=== PATIENT | female | born 1945 ===

== ENCOUNTER 2019-09-18 14:57 | Inpatient (IN) | payer MEDICARE, MEDICAID ==
[~2019-09-18] VITALS: Ht 152.4 cm; Wt 54.1 kg
[2019-09-18] MEDS ORDERED: XOPENEX HFA15 GM IH (16:02)
[2019-09-18] MEDS ORDERED: LEVO75TA5 PO (16:03)
[2019-09-18] MEDS ORDERED: MELO15TA23 PO (16:03)
[2019-09-18] MEDS ORDERED: TRAZ150T49 PO (16:09)
[2019-09-18] MEDS ORDERED: RALO60TA PO (16:09)
[2019-09-18] MEDS ORDERED: UMEC1DIS IH (16:09)
[2019-09-18] MEDS ORDERED: TRAM50TA PO (16:09)
[2019-09-18] MEDS ORDERED: ACETAMINOPHEN 325 MG TABLET PO PRN (17:00)
[2019-09-18 17:21] VITALS: BP 131/77
[2019-09-18 17:50] LABS: BASO % 1 % (0-3); EOS # 0.3 x10^3/uL (0.0-0.7); EOS % 4 % (0-3); HEMATOCRIT 34.7 % (36.0-47.0); HEMOGLOBIN 11.6 g/dL (12.0-15.5); LYMPH % 28 % (24-48); MEAN CORPUSCULAR HEMOGLOBIN 33 pg (25-35); MEAN CORPUSCULAR HGB CONC 33 g/dL (31-37); MEAN CORPUSCULAR VOLUME 99 fL (79-100); MONO # 0.7 x10^3/uL (0.0-1.1); MONO % 10 % (0-9); NEUT # 4.1 x10^3uL (1.8-7.7); NEUT % 57 % (31-73); PLATELET COUNT 261 x10^3/uL (140-400); RED BLOOD COUNT 3.51 x10^6/uL (3.50-5.40); RED CELL DISTRIBUTION WIDTH 12.6 % (11.5-14.5); WHITE BLOOD COUNT 7.1 x10^3/uL (4.0-11.0)
[2019-09-18 18:05] LABS: ALBUMIN 3.5 g/dL (3.4-5.0); GFR 54.2; MAGNESIUM 1.7 mg/dL (1.8-2.4); POTASSIUM 3.6 mmol/L (3.5-5.1); TOTAL BILIRUBIN 0.3 mg/dL (0.2-1.0); TOTAL PROTEIN 6.9 g/dL (6.4-8.2)
--- NOTE | 2019-09-18 20:39 | PDOC ---
Exam Note: Chaparro Note: Please also refer to the separate dictated note~for this date of service dictated separately. Discussed the patient with Nursing staff reviewed the chart.~Reviewed interim history and current functioning. Reviewed vital signs,~Labs/ Radiology~and current medications noted below. Continue current treatment with the changes noted in the dictated addendum note Assessment: Vital Signs/I&O: Vital Signs Date Time Temp Pulse Resp B/P (MAP) Pulse Ox O2 Delivery O2 Flow Rate FiO2 09/18/19 17:21 98.4 101 18 131/77 (95) 97 Labs: Laboratory Tests Test 09/18/19 17:40 White Blood Count 7.1 x10^3/uL (4.0-11.0) Red Blood Count 3.51 x10^6/uL (3.50-5.40) Hemoglobin 11.6 g/dL (12.0-15.5) L Hematocrit 34.7 % (36.0-47.0) L Mean Corpuscular Volume 99 fL (79-100) Mean Corpuscular Hemoglobin 33 pg (25-35) Mean Corpuscular Hemoglobin Concent 33 g/dL (31-37) Red Cell Distribution Width 12.6 % (11.5-14.5) Platelet Count 261 x10^3/uL (140-400) Neutrophils (%) (Auto) 57 % (31-73) Lymphocytes (%) (Auto) 28 % (24-48) Monocytes (%) (Auto) 10 % (0-9) H Eosinophils (%) (Auto) 4 % (0-3) H Basophils (%) (Auto) 1 % (0-3) Neutrophils # (Auto) 4.1 x10^3uL (1.8-7.7) Lymphocytes # (Auto) 2.0 x10^3/uL (1.0-4.8) Monocytes # (Auto) 0.7 x10^3/uL (0.0-1.1) Eosinophils # (Auto) 0.3 x10^3/uL (0.0-0.7) Basophils # (Auto) 0.0 x10^3/uL (0.0-0.2) Sodium Level 146 mmol/L (136-145) H Potassium Level 3.6 mmol/L (3.5-5.1) Chloride Level 108 mmol/L (98-107) H Carbon Dioxide Level 28 mmol/L (21-32) Anion Gap 10 (6-14) Blood Urea Nitrogen 16 mg/dL (7-20) Creatinine 1.0 mg/dL (0.6-1.0) Estimated GFR (Cockcroft-Gault) 54.2 BUN/Creatinine Ratio 16 (6-20) Glucose Level 124 mg/dL (70-99) H Calcium Level 9.0 mg/dL (8.5-10.1) Magnesium Level 1.7 mg/dL (1.8-2.4) L Total Bilirubin 0.3 mg/dL (0.2-1.0) Aspartate Amino Transferase (AST) 35 U/L (15-37) Alanine Aminotransferase (ALT) 51 U/L (14-59) Alkaline Phosphatase 46 U/L (46-116) Total Protein 6.9 g/dL (6.4-8.2) Albumin 3.5 g/dL (3.4-5.0) Albumin/Globulin Ratio 1.0 (1.0-1.7) Current Medications: I have reviewed the current psychotropics carefully including drug interactions. Risk benefit ratio favors no change other than as noted in my dictated progress note. NIGHAT ORTIZ MD Sep 18, 2019 20:39
[2019-09-18] MEDS: traZODone 50 MG TABLET. PO PRN (21:00)
[2019-09-18] MEDS ORDERED: traZODone 150 MG TABLET. PO SCH (21:00)
[2019-09-18] MEDS: traMADol 50 MG TABLET PO SCH (21:00)
--- NOTE | 2019-09-18 21:06 | HP ---
ADMIT DATE: 09/18/2019 PSYCHIATRIC ADMISSION HISTORY/EVALUATION IDENTIFYING DATA: The patient is a 73-year-old female referred to us from the Emergency Room at [facility], where she presented from home after she was telling her son that she was "seeing figures trying to kill her." She was calling the police and telling them there were people in her apartment when no one was there. She was having marked insomnia. She was having active hallucinations. Previous night she stood "[id number] in the hallway and talked to someone who was not there." The patient minimizes all of this. Behaviors have been deemed dangerous, unmanageable, brought to the ER, evaluated and found to be medically stable, and then referred for inpatient psychiatric stabilization. CHIEF COMPLAINT: "They say I have hallucinations, but I don't." HISTORY OF PRESENT ILLNESS: The patient has a history of worsening psychosis and some short-term memory deficits with active auditory and visual hallucinations as noted above. She has appeared depressed with some mood swings, but has no clear past history of bipolar disorder. No active suicidal or homicidal ideation. Reportedly, the patient had been living in [place] closer to her mother and then recently moved by family to [place] just the day before. PAST PSYCHIATRIC HISTORY: As above. PAST MEDICAL HISTORY: Positive for asthma, COPD, GERD, hypertension, hypothyroidism, obstructive sleep apnea, and sleep disorder. ALLERGIES: ASPIRIN, PENICILLIN, CYMBALTA, NONSTEROIDAL ANTI-INFLAMMATORY, and BIOXTRA. CODE STATUS: Full code. ACCU-CHEKS: None. DIET: Regular, thin liquids. Takes medications whole, ambulates independently. CURRENT PSYCHOTROPICS: Zyprexa was added following admission 2.5 mg q. 2 hours p.r.n., max 10 mg in 24 hours. She is also on Synthroid, Evista, Mobic, and Nicoderm patch. She has not had a CT head and we will do one here. FAMILY HISTORY: Noncontributory. 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 She states she used to drink heavy in the past, but not recently. No known drug abuse history is noted. No physical, sexual, or elder abuse history is noted. MENTAL STATUS EXAMINATION: The patient was seen individually evening of 09/18/2019. She is oriented reasonably. Speech is coherent, abstraction fair, computation impaired, language function intact, and attention span short. She remains psychotic, minimizes most of her psychosis, rationalizes this. Attention span short. Language function intact. No active suicidal or homicidal ideation. LABORATORY DATA: Reviewed. IMPRESSION: Psychotic disorder, unspecified, rule out schizoaffective disorder, bipolar type, mixed with psychotic features, anxiety disorder, unspecified. The rest as above. PLAN: Admit to Geropsychiatry Unit at [facility]. I will see the patient daily individually from a psychiatric standpoint. Medical followup with Dr. Contreras. We will check a CT head if not done recently. Start trazodone 50 mg at bedtime p.r.n., may repeat x 1 for insomnia, in the past she was taking 150 mg at bedtime, may repeat x 1. Observe baseline, then make further changes as clinically indicated. She will probably need to be on an atypical antipsychotic, but I would like to make sure there is nothing organic to account for her symptoms. Estimated length of stay 10-12 days. DISPOSITION: Plans back to either home or she may need a step-down facility post-stabilization here. NIGHAT ORTIZ MD DR: SHILPA/olga JOB#: [id number] / [id number]
[2019-09-19 05:46] VITALS: BP 119/55
[2019-09-19 05:52] LABS: BILIRUBIN,URINE NEG (NEG); CLARITY,URINE CLEAR; COLOR,URINE YELLOW; GLUCOSE,URINE NEG (NEG)
[2019-09-19 05:53] LABS: BACTERIA,URINE 0 /HPF (0-FEW); NITRITE,URINE NEG (NEG); RBC,URINE OCC /HPF (0-2); SQUAMOUS EPITHELIAL CELL,UR FEW /LPF; UROBILINOGEN,URINE 0.2 mg/dL (0.2 mg/dL); WBC,URINE OCC /HPF (0-4)
[2019-09-19] MEDS: LEVOTHYROXINE 75 MCG TABLET PO SCH (06:00)
[2019-09-19] MEDS: MELOXICAM 15 MG TABLET. PO SCH (09:17)
[2019-09-19] MEDS: RALOXIFENE 60 MG TABLET. PO SCH (09:17)
[2019-09-19] MEDS: traMADol 50 MG TABLET PO SCH ×2 (09:18→22:15)
[2019-09-19] MEDS: NICOTINE 21MG PATCH. TD SCH (09:18)
[2019-09-19] MEDS: LEVALBUTEROL TARTRATE INH PRN (09:21)
[2019-09-19] MEDS: UMECLIDINIUM BRM INH SCH (09:21)
[2019-09-19] MEDS: VILANTEROL TR INH SCH (09:21)
[2019-09-19 10:57] LABS: THYROID STIM HORMONE (TSH) 0.538 uIU/mL (0.358-3.740)
--- NOTE | 2019-09-19 10:58 | RAD ---
EXAM: CT HEAD WITHOUT CONTRAST. HISTORY: Altered mental status. TECHNIQUE: Computed tomography of the head was performed without intravenous contrast. One or more of the following individualized dose reduction techniques were utilized for this examination: 1. Automated exposure control. 2. Adjustment of the mA and/or kV according to patient size. 3. Use of iterative reconstruction technique. COMPARISON: None. FINDINGS: There is no intracranial hemorrhage. Hypoattenuation within the periventricular white matter indicates mild to moderate chronic microangiopathic change. Prominence of the lateral ventricles and hemispheric sulci indicates moderate atrophy. The visualized paranasal sinuses appear clear. There are changes of bilateral cataract surgery. The temporal bones are unremarkable. The calvarium reveals no suspicious lesions. There are atherosclerotic calcifications of the internal carotid and vertebral arteries. IMPRESSION: 1. No acute intracranial findings. 2. Moderate atrophy and mild to moderate chronic microangiopathic white matter change. Electronically signed by: Tomasa Mayberry MD (09/19/2019 10:55 AM) [facility]
[2019-09-19 13:07] LABS: THYROXINE 13.4 ug/dL (4.5-12.0)
[2019-09-19] MEDS: MAG HYDROX/AL HYDROX/SIMETH 30 ML ORAL.SUSP PO PRN (14:21)
[2019-09-19 15:36] VITALS: BP 106/68
--- NOTE | 2019-09-19 19:56 | PDOC ---
Exam Note: Chaparro Note: Please also refer to the separate dictated note~for this date of service dictated separately.~Patient seen individually. Discussed the patient with Nursing staff reviewed the chart.~Reviewed interim history and current functioning. Reviewed vital signs,~Labs/ Radiology~and current medications noted below. Continue current treatment with the changes noted in the dictated addendum note Assessment: Vital Signs/I&O: Vital Signs Date Time Temp Pulse Resp B/P (MAP) Pulse Ox O2 Delivery O2 Flow Rate FiO2 09/19/19 15:36 98.2 77 16 106/68 (81) 94 09/18/19 21:00 Room Air I & O 09/18/19 09/18/19 09/19/19 15:00 23:00 07:00 Intake Total 100 ml Balance 100 ml Labs: Laboratory Tests Test 09/19/19 05:24 Urine Collection Type Void Urine Color Yellow Urine Clarity Clear Urine pH 5.5 Urine Specific Hancock 1.020 Urine Protein Neg (NEG-TRACE) Urine Glucose (UA) Neg mg/dL (NEG) Urine Ketones (Stick) Neg mg/dL (NEG) Urine Blood Neg (NEG) Urine Nitrite Neg (NEG) Urine Bilirubin Neg (NEG) Urine Urobilinogen Dipstick 0.2 mg/dL (0.2 mg/dL) Urine Leukocyte Esterase Neg (NEG) Urine RBC Occ /HPF (0-2) Urine WBC Occ /HPF (0-4) Urine Squamous Epithelial Cells Few /LPF Urine Bacteria 0 /HPF (0-FEW) Current Medications: Meds: Current Medications Medications (Trade) Dose Ordered Sig/Theo Route PRN Reason Start Time Stop Time Status Last Admin Dose Admin Levothyroxine Sodium (Synthroid) 75 mcg DAILY06 PO 09/19/19 06:00 09/19/19 06:00 Meloxicam (Mobic) 15 mg DAILY PO 09/19/19 09:00 09/19/19 09:17 Raloxifene HCl (Evista) 60 mg DAILY PO 09/19/19 09:00 09/19/19 09:17 Tramadol HCl (Ultram) 50 mg BID PO 09/18/19 21:00 09/19/19 09:18 Non-Formulary Medication (Umeclidinium Brm/Vilanterol Tr (Anoro Ellipta 62.5-25 Mcg Inh)) 1 each DAILY INH 09/19/19 09:00 09/19/19 09:21 Nicotine (Nicoderm Cq 21mg) 1 patch DAILY TD 09/19/19 09:00 09/19/19 09:18 Trazodone HCl (Desyrel) 50 mg HS PRN PO INSOMNIA, MAY REPEAT X1 09/18/19 20:30 09/18/19 21:00 I have reviewed the current psychotropics carefully including drug interactions. Risk benefit ratio favors no change other than as noted in my dictated progress note. Diagnosis: Problems: (1) Anxiety disorder (2) Bipolar affective, mixed, sev w/ psych (3) Psychosis, atypical (4) Schizoaffective disorder (5) Alcoholic psychosis NIGHAT ORTIZ MD Sep 19, 2019 19:56
[2019-09-19] MEDS: traZODone 50 MG TABLET. PO PRN (22:15)
--- NOTE | 2019-09-20 01:01 | CONS ---
DATE OF CONSULTATION: REASON FOR CONSULTATION: Medical management. HISTORY OF PRESENT ILLNESS: The patient is a 73-year-old female patient who was referred [facility] from the Emergency Room at [facility] where she presented from home after she was telling her son that she was seeing figures trying to kill her. She was calling the police and telling them that there were people in her apartment when no one was there. She was having marked insomnia. She was having active hallucination. The previous night, she stood nose to nose in the hallway and talked to someone who was not there. The patient minimizes all of this. Behaviors have been deemed dangerous, unmanageable. She was brought to the Emergency Room, evaluated and found to be medically stable and therefore referred for inpatient psychiatric stabilization. When I saw her this afternoon, she denied any complaint, in particular denied any hallucination. PAST MEDICAL HISTORY: Medically, she has multiple medical problems including bronchial asthma, COPD, gastroesophageal reflux disease, hypertension, hypothyroidism, obstructive sleep apnea and sleep disorder. PAST SURGICAL HISTORY: The patient underwent bilateral cataract extraction, tonsillectomy, appendectomy, cholecystectomy and total abdominal hysterectomy. ALLERGIES: She is allergic to ASPIRIN, PENICILLIN, CYMBALTA, NONSTEROIDAL ANTI-INFLAMMATORY and VIOXX. FAMILY HISTORY: She has two brothers; one lives in [place] and the other one lives in [place]. Both her parents are . SOCIAL HISTORY: She is . She moved only recently from [facility] to be with her children. She has 3 children; all of them live in [place]. She continues to smoke. 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 She does not use any drugs. 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 MEDICATIONS: She is currently on following medications: She is currently on Anoro Ellipta 1 inhalation once a day, Xopenex 2 puffs every 4-6 hours, meloxicam 15 mg daily, tramadol 50 mg twice a day, trazodone 150 mg at bedtime, raloxifene for Evista 60 mg daily, levothyroxine sodium 75 mcg once a day. PHYSICAL EXAMINATION: GENERAL: When I examined her this afternoon, she was resting flat in bed, in no apparent respiratory distress. No pallor, jaundice, cyanosis or thyromegaly. No jugular venous distention. No lower limb edema. VITAL SIGNS: Her heart rate was 77, blood pressure was 106/68, temperature was 98.2, respiratory rate was 16 and oxygen saturation was 94%. HEAD, EYES, EARS, NOSE AND THROAT: Showed normocephalic, atraumatic. NECK: Supple. HEART: Showed normal first and second heart sounds. No gallop or murmur. CHEST: Clear to auscultation. No crepitation or rhonchi. ABDOMEN: Distended, soft, nontender. NEUROLOGIC: She is awake, alert, responding appropriately. All cranial nerves intact. She ambulates with a cane. LABORATORY DATA: Showed white cell count of 7100, hemoglobin 11.6, hematocrit 34.7, MCV 99 and platelet count 261,000 with normal manual differential. Her chemistry showed a serum sodium of 146, potassium 3.6, chloride 108, bicarbonate 28, anion gap of 10, BUN 16, creatinine 1, estimated GFR was 54 mL per minute. Her glucose 124, calcium was 9, magnesium was 1.7. Serum iron, TIBC and iron saturation are all normal. Total bilirubin, AST, ALT, alkaline phosphatase were normal. Total protein was 6.9, albumin was 3.5. Serum triglycerides 113, total cholesterol of 55, LDL was 82, VLDL was 22, HDL cholesterol 51 and ratio was 3. Her TSH was 0.538. Total T4 and total T3 are within normal range. Her urinalysis was essentially negative. She did have a CT scan of the head, which showed that there is no intracranial hemorrhage, moderate atrophy and [id number] chronic microangiopathic white matter changes. IMPRESSION AND PLAN: All in all, the patient seems to be medically stable. I will follow all her lab work and basically make any necessary recommendation. Thank you, Dr. Nicholas for allowing me to participate in the care of this patient. GHASSAN CHACKO MD DR: JASON/olga JOB#: [id number] / [id number]
[2019-09-20 02:06] LABS: HEMOGLOBIN A1C 5.2 % (4.8-5.6)
[2019-09-20] MEDS: LEVOTHYROXINE 75 MCG TABLET PO SCH (06:01)
[2019-09-20] MEDS: PANTOPRAZOLE 40 MG TABLET. PO SCH (06:01)
[2019-09-20 06:05] VITALS: BP 139/83
[2019-09-20] MEDS: VILANTEROL TR INH SCH (06:05)
[2019-09-20] MEDS: UMECLIDINIUM BRM INH SCH (06:05)
[2019-09-20] MEDS: LEVALBUTEROL TARTRATE INH PRN ×2 (06:05→20:48)
[2019-09-20] MEDS: METHYL SALICYLATE/MENTHOL TOPICAL OINTMENT 57GM TUBE. TP PRN (06:07)
[2019-09-20] MEDS: RALOXIFENE 60 MG TABLET. PO SCH (08:38)
[2019-09-20] MEDS: MELOXICAM 15 MG TABLET. PO SCH (08:38)
[2019-09-20] MEDS: NICOTINE 21MG PATCH. TD SCH (08:39)
[2019-09-20] MEDS: traMADol 50 MG TABLET PO SCH ×2 (08:39→20:41)
[2019-09-20 15:51] VITALS: BP 110/67
--- NOTE | 2019-09-20 16:00 | PN ---
DATE: 09/19/2019 PSYCHIATRIC PROGRESS NOTE This late entry 09/19/2019 covers elements not covered in my initial note. SUBJECTIVE: I met with the patient in the evening. The patient slept 6-3/4 hours previous night. Per nursing report, the patient remains somewhat withdrawn, but still paranoid with intermittent hallucinations. She is complaining of headache as I met with her in her room. She had received an ice pack, was wanting another one. REVIEW OF SYSTEMS: No CV, , pulmonary, eye system symptoms on review. MENTAL STATUS EXAM: Oriented reasonably. Speech is coherent. She minimizes the psychotic symptoms. Abstraction fair, computation impaired, language function intact. CT head, no acute changes. IMPRESSION: Psychotic disorder, unspecified versus major depressive disorder with psychotic features versus major neurocognitive disorder, early Alzheimer, vascular with delusions. PLAN: Continue trazodone 50 mg at bedtime, february repeat x 1. Observe baseline. Continue rest of the psychotropics unchanged including Zyprexa p.r.n. NIGHAT ORTIZ MD DR: SHILPA/olga JOB#: [id number] / [id number]
--- NOTE | 2019-09-20 19:50 | PDOC ---
Exam Note: Chaparro Note: Please also refer to the separate dictated note~for this date of service dictated separately.~Patient seen individually. Discussed the patient with Nursing staff reviewed the chart.~Reviewed interim history and current functioning. Reviewed vital signs,~Labs/ Radiology~and current medications noted below. Continue current treatment with the changes noted in the dictated addendum note Assessment: Vital Signs/I&O: Vital Signs Date Time Temp Pulse Resp B/P (MAP) Pulse Ox O2 Delivery O2 Flow Rate FiO2 09/20/19 15:51 98.0 80 16 110/67 (81) 94 09/20/19 06:05 Room Air I & O 09/19/19 09/19/19 09/20/19 14:59 22:59 06:59 Intake Total 600 ml 600 ml Balance 600 ml 600 ml Current Medications: Meds: Current Medications Medications (Trade) Dose Ordered Sig/Theo Route PRN Reason Start Time Stop Time Status Last Admin Dose Admin Pantoprazole Sodium (Protonix) 40 mg 0600 PO 09/20/19 06:00 09/20/19 06:01 I have reviewed the current psychotropics carefully including drug interactions. Risk benefit ratio favors no change other than as noted in my dictated progress note. Diagnosis: Problems: (1) Anxiety disorder (2) Bipolar affective, mixed, sev w/ psych (3) Psychosis, atypical (4) Schizoaffective disorder (5) Alcoholic psychosis NIGHAT ORTIZ MD Sep 20, 2019 19:50
[2019-09-20] MEDS: risperiDONE 0.25 MG TABLET. PO SCH (20:41)
[2019-09-20] MEDS: traZODone 50 MG TABLET. PO PRN (20:43)
[2019-09-21 06:16] VITALS: BP 108/75
[2019-09-21] MEDS: LEVOTHYROXINE 75 MCG TABLET PO SCH (06:28)
[2019-09-21] MEDS: PANTOPRAZOLE 40 MG TABLET. PO SCH (06:28)
[2019-09-21] MEDS: LEVALBUTEROL TARTRATE INH PRN (06:32)
[2019-09-21] MEDS: UMECLIDINIUM BRM INH SCH (06:32)
[2019-09-21] MEDS: VILANTEROL TR INH SCH (06:32)
[2019-09-21] MEDS: RALOXIFENE 60 MG TABLET. PO SCH (08:05)
[2019-09-21] MEDS: NICOTINE 21MG PATCH. TD SCH (08:05)
[2019-09-21] MEDS: MELOXICAM 15 MG TABLET. PO SCH (08:05)
[2019-09-21] MEDS: traMADol 50 MG TABLET PO SCH ×2 (08:05→20:31)
[2019-09-21 16:04] VITALS: BP 106/73
--- NOTE | 2019-09-21 19:52 | PDOC ---
Exam Note: Chaparro Note: Please also refer to the separate dictated note~for this date of service dictated separately.~Patient seen individually. Discussed the patient with Nursing staff reviewed the chart.~Reviewed interim history and current functioning. Reviewed vital signs,~Labs/ Radiology~and current medications noted below. Continue current treatment with the changes noted in the dictated addendum note Assessment: Vital Signs/I&O: Vital Signs Date Time Temp Pulse Resp B/P (MAP) Pulse Ox O2 Delivery O2 Flow Rate FiO2 09/21/19 16:04 97.9 69 16 106/73 (84) 95 Room Air I & O 09/20/19 09/20/19 09/21/19 15:00 23:00 07:00 Intake Total 360 ml 360 ml 120 ml Balance 360 ml 360 ml 120 ml Current Medications: Meds: Current Medications Medications (Trade) Dose Ordered Sig/Theo Route PRN Reason Start Time Stop Time Status Last Admin Dose Admin Risperidone (RisperDAL) 0.25 mg HS PO 09/20/19 21:00 09/20/19 20:41 I have reviewed the current psychotropics carefully including drug interactions. Risk benefit ratio favors no change other than as noted in my dictated progress note. Diagnosis: Problems: (1) Anxiety disorder (2) Bipolar affective, mixed, sev w/ psych (3) Psychosis, atypical (4) Schizoaffective disorder (5) Alcoholic psychosis NIGHAT ORTIZ MD Sep 21, 2019 19:52
[2019-09-21] MEDS: risperiDONE 0.25 MG TABLET. PO SCH (20:28)
[2019-09-21] MEDS: MAGNESIUM HYDROXIDE 2,400 MG/30 ML ORAL.SUSP. PO PRN (20:28)
--- NOTE | 2019-09-21 23:36 | PN ---
DATE: 09/20/2019 PSYCHIATRIC PROGRESS NOTE This late entry 09/20/2019 covers the elements not covered in my initial note. SUBJECTIVE: Per María RN, the patient slept 7-3/4 hours previous night. Per nursing report, she has been snarky and rude in the evening, somewhat irritable in the morning as well, paranoid, but minimizes this when questioned. REVIEW OF SYSTEMS: No CV, , pulmonary, eye, ENT system symptoms on review. MENTAL STATUS EXAM: Reasonably oriented. Speech is coherent, abstraction fair, computation impaired, language function intact, attention span short. Mood and affect somewhat withdrawn at times. LABORATORY DATA: Reviewed. IMPRESSION: Unchanged from initial note. PLAN: We will go ahead and start the patient on Risperdal 0.25 mg at bedtime for her psychotic symptoms. Consider SSRIs. Rest unchanged for now. MAN Dae ORTIZ MD DR: SHILPA/olga JOB#: [id number] / [id number]
[2019-09-22] MEDS: PANTOPRAZOLE 40 MG TABLET. PO SCH (05:41)
[2019-09-22] MEDS: LEVOTHYROXINE 75 MCG TABLET PO SCH (05:41)
[2019-09-22 06:30] VITALS: BP 142/83
[2019-09-22] MEDS: NICOTINE 21MG PATCH. TD SCH (08:47)
[2019-09-22] MEDS: RALOXIFENE 60 MG TABLET. PO SCH (08:47)
[2019-09-22] MEDS: VILANTEROL TR INH SCH (08:47)
[2019-09-22] MEDS: UMECLIDINIUM BRM INH SCH (08:47)
[2019-09-22] MEDS: SERTRALINE 25 MG TABLET. PO SCH (08:47)
[2019-09-22] MEDS: MELOXICAM 15 MG TABLET. PO SCH (08:47)
[2019-09-22] MEDS: traMADol 50 MG TABLET PO SCH ×2 (08:48→22:06)
[2019-09-22 15:41] VITALS: BP 137/80
--- NOTE | 2019-09-22 19:50 | PDOC ---
Exam Note: Chaparro Note: Please also refer to the separate dictated note~for this date of service dictated separately.~Patient seen individually. Discussed the patient with Nursing staff reviewed the chart.~Reviewed interim history and current functioning. Reviewed vital signs,~Labs/ Radiology~and current medications noted below. Continue current treatment with the changes noted in the dictated addendum note Assessment: Vital Signs/I&O: Vital Signs Date Time Temp Pulse Resp B/P (MAP) Pulse Ox O2 Delivery O2 Flow Rate FiO2 09/22/19 15:41 98.0 72 18 137/80 (99) 98 09/21/19 22:00 Room Air I & O 09/21/19 09/21/19 09/22/19 15:00 23:00 07:00 Intake Total 960 ml 600 ml Balance 960 ml 600 ml Current Medications: Meds: Current Medications Medications (Trade) Dose Ordered Sig/Theo Route PRN Reason Start Time Stop Time Status Last Admin Dose Admin Sertraline HCl (Zoloft) 25 mg DAILY PO 09/22/19 09:00 09/24/19 11:00 09/22/19 08:47 I have reviewed the current psychotropics carefully including drug interactions. Risk benefit ratio favors no change other than as noted in my dictated progress note. Diagnosis: Problems: (1) Anxiety disorder (2) Bipolar affective, mixed, sev w/ psych (3) Psychosis, atypical (4) Schizoaffective disorder (5) Alcoholic psychosis NIGHAT ORTIZ MD Sep 22, 2019 19:50
[2019-09-22] MEDS: traZODone 50 MG TABLET. PO PRN (20:28)
[2019-09-22] MEDS: risperiDONE 0.25 MG TABLET. PO SCH (20:28)
--- NOTE | 2019-09-22 20:33 | PN ---
DATE: 09/21/2019 PSYCHIATRIC PROGRESS NOTE This late entry 09/21/2019, covers elements not covered in my initial note. SUBJECTIVE: I met with the patient in the evening and staffed at a treatment team meeting with the entire team in the morning. The patient's appetite is reasonable. Sleeping about 7 hours. She minimizes the psychotic symptoms, believes she was to be here just for 3 days and this time for her to leave. I addressed this at length with her. REVIEW OF SYSTEMS: No CV, , pulmonary, eye system symptoms on review. Reliability fair. MENTAL STATUS EXAM: Oriented to herself and situation. Speech is coherent, somewhat anxious. Abstraction fair, computation impaired, language function intact, attention span short. Mood and affect somewhat withdrawn, anxious, minimizes all of this. LABORATORY DATA: Reviewed. IMPRESSION: Unchanged from initial note. PLAN: No change from initial note. MAN Dae ORTIZ MD DR: SHILPA/olga JOB#: [id number] / [id number]
[2019-09-22] MEDS: LEVALBUTEROL TARTRATE INH PRN (22:05)
[2019-09-23 05:46] VITALS: BP 101/66
[2019-09-23] MEDS: LEVOTHYROXINE 75 MCG TABLET PO SCH (05:46)
[2019-09-23] MEDS: PANTOPRAZOLE 40 MG TABLET. PO SCH (05:46)
[2019-09-23] MEDS: LEVALBUTEROL TARTRATE INH PRN (05:49)
[2019-09-23] MEDS: UMECLIDINIUM BRM INH SCH (05:49)
[2019-09-23] MEDS: VILANTEROL TR INH SCH (05:49)
[2019-09-23] MEDS: MELOXICAM 15 MG TABLET. PO SCH (08:15)
[2019-09-23] MEDS: traMADol 50 MG TABLET PO SCH ×2 (08:15→20:36)
[2019-09-23] MEDS: RALOXIFENE 60 MG TABLET. PO SCH (08:15)
[2019-09-23] MEDS: NICOTINE 21MG PATCH. TD SCH (08:16)
[2019-09-23] MEDS: SERTRALINE 25 MG TABLET. PO SCH (08:16)
--- NOTE | 2019-09-23 10:39 | PN ---
DATE: 09/22/2019 PSYCHIATRIC PROGRESS NOTE This late entry 09/22/2019 covers the elements not covered in my initial note. SUBJECTIVE: I met with the patient in the evening. Per YUKI Davis, the patient has been alert, oriented, slept 7-1/2 hours. Appetite 75%. Denies suicidal ideation. She remains depressed, withdrawn. Denies hallucinations attend some groups. REVIEW OF SYSTEMS: No CV, , pulmonary, eye, ENT system symptoms on review. The patient was lying in bed before I went to her room, she sat up and was quite interactive. MENTAL STATUS EXAM: Oriented reasonably. Speech is coherent, abstraction fair, computation impaired, language function intact. Mood and affect somewhat withdrawn. LABORATORY DATA: Reviewed. IMPRESSION: Unchanged from initial note. PLAN: No change from initial note. Zoloft is being adjusted. Maintain Risperdal, Zyprexa for now. MAN Dae ORTIZ MD DR: SHILPA/olga JOB#: [id number] / [id number]
--- NOTE | 2019-09-23 11:13 | PN ---
DATE: 09/23/2019 PSYCHIATRIC PROGRESS NOTE This note covers elements not covered in my initial note 09/23/2019. SUBJECTIVE: I met with the patient in the morning. The patient slept 4-1/2 hours previous night. At times, staff have noticed her staring off and whispering to herself, irritable with meds and cares, but ultimately complied. She minimizes all of this when I questioned her. REVIEW OF SYSTEMS: No CV, , pulmonary, eye system symptoms on review. MENTAL STATUS EXAM: Reasonably oriented. Speech has some latency, coherent. Abstraction fair, computation impaired, language function intact, attention span short. Patient is fixated on discharge plans. We will defer to social service staff. No active suicidal or homicidal ideation. LABORATORY DATA: Reviewed. IMPRESSION: Unchanged from initial note. PLAN: No change from initial note. Increase her Zoloft gradually. Maintain Risperdal 0.25 mg at bedtime, Zyprexa is p.r.n. together with trazadone. NIGHAT ORTIZ MD DR: SHILPA/olga JOB#: [id number] / [id number]
[2019-09-23 16:11] VITALS: BP 101/55
[2019-09-23] MEDS: traZODone 50 MG TABLET. PO PRN (20:33)
[2019-09-23] MEDS: risperiDONE 0.25 MG TABLET. PO SCH (20:33)
--- NOTE | 2019-09-23 20:36 | PDOC ---
Exam Note: Chaparro Note: Please also refer to the separate dictated note~for this date of service dictated separately.~Patient seen individually. Discussed the patient with Nursing staff reviewed the chart.~Reviewed interim history and current functioning. Reviewed vital signs,~Labs/ Radiology~and current medications noted below. Continue current treatment with the changes noted in the dictated addendum note Assessment: Vital Signs/I&O: Vital Signs Date Time Temp Pulse Resp B/P (MAP) Pulse Ox O2 Delivery O2 Flow Rate FiO2 09/23/19 16:11 98.0 68 18 101/55 (70) 93 09/22/19 23:38 Room Air I & O 09/22/19 09/22/19 09/23/19 15:00 23:00 07:00 Intake Total 960 ml 240 ml Balance 960 ml 240 ml Current Medications: I have reviewed the current psychotropics carefully including drug interactions. Risk benefit ratio favors no change other than as noted in my dictated progress note. Diagnosis: Problems: (1) Anxiety disorder (2) Bipolar affective, mixed, sev w/ psych (3) Psychosis, atypical (4) Schizoaffective disorder (5) Alcoholic psychosis NIGHAT ORTIZ MD Sep 23, 2019 20:36
[2019-09-24] MEDS: LEVOTHYROXINE 75 MCG TABLET PO SCH (05:39)
[2019-09-24] MEDS: PANTOPRAZOLE 40 MG TABLET. PO SCH (05:39)
[2019-09-24 06:26] VITALS: BP 124/74
[2019-09-24 07:08] LABS: BASO % 1 % (0-3); EOS # 0.2 x10^3/uL (0.0-0.7); EOS % 5 % (0-3); HEMOGLOBIN 10.8 g/dL (12.0-15.5); LYMPH # 1.2 x10^3/uL (1.0-4.8); LYMPH % 25 % (24-48); MEAN CORPUSCULAR HEMOGLOBIN 33 pg (25-35); MEAN CORPUSCULAR HGB CONC 33 g/dL (31-37); MEAN CORPUSCULAR VOLUME 100 fL (79-100); MONO # 0.6 x10^3/uL (0.0-1.1); MONO % 14 % (0-9); NEUT # 2.6 x10^3uL (1.8-7.7); NEUT % 56 % (31-73); PLATELET COUNT 187 x10^3/uL (140-400); RED BLOOD COUNT 3.31 x10^6/uL (3.50-5.40); RED CELL DISTRIBUTION WIDTH 12.9 % (11.5-14.5); WHITE BLOOD COUNT 4.7 x10^3/uL (4.0-11.0)
[2019-09-24 07:16] LABS: ALBUMIN 2.9 g/dL (3.4-5.0); CALCIUM 8.6 mg/dL (8.5-10.1); CREATININE 1.1 mg/dL (0.6-1.0); GFR 48.6; POTASSIUM 4.5 mmol/L (3.5-5.1); TOTAL BILIRUBIN 0.4 mg/dL (0.2-1.0); TOTAL PROTEIN 5.8 g/dL (6.4-8.2)
[2019-09-24] MEDS: MELOXICAM 15 MG TABLET. PO SCH (09:23)
[2019-09-24] MEDS: SERTRALINE 25 MG TABLET. PO SCH (09:23)
[2019-09-24] MEDS: traMADol 50 MG TABLET PO SCH ×2 (09:23→22:16)
[2019-09-24] MEDS: RALOXIFENE 60 MG TABLET. PO SCH (09:23)
[2019-09-24] MEDS: UMECLIDINIUM BRM INH SCH (09:23)
[2019-09-24] MEDS: NICOTINE 21MG PATCH. TD SCH (09:23)
[2019-09-24] MEDS: VILANTEROL TR INH SCH (09:23)
[2019-09-24] MEDS: LEVALBUTEROL TARTRATE INH PRN ×2 (09:30→22:18)
[2019-09-24 15:33] VITALS: BP 106/72
--- NOTE | 2019-09-24 20:04 | PDOC ---
Exam Note: [place] Note: Please also refer to the separate dictated note~for this date of service dictated separately.~Patient seen individually. Discussed the patient with Nursing staff reviewed the chart.~Reviewed interim history and current functioning. Reviewed vital signs,~Labs/ Radiology~and current medications noted below. Continue current treatment with the changes noted in the dictated addendum note Assessment: Vital Signs/I&O: Vital Signs Date Time Temp Pulse Resp B/P (MAP) Pulse Ox O2 Delivery O2 Flow Rate FiO2 09/24/19 15:33 98.4 71 16 106/72 (83) 95 09/24/19 06:26 Room Air I & O 09/23/19 09/23/19 09/24/19 14:59 22:59 06:59 Intake Total 480 ml 360 ml Balance 480 ml 360 ml Labs: Laboratory Tests Test 09/24/19 06:25 White Blood Count 4.7 x10^3/uL (4.0-11.0) Red Blood Count 3.31 x10^6/uL (3.50-5.40) L Hemoglobin 10.8 g/dL (12.0-15.5) L Hematocrit 33.0 % (36.0-47.0) L Mean Corpuscular Volume 100 fL (79-100) Mean Corpuscular Hemoglobin 33 pg (25-35) Mean Corpuscular Hemoglobin Concent 33 g/dL (31-37) Red Cell Distribution Width 12.9 % (11.5-14.5) Platelet Count 187 x10^3/uL (140-400) Neutrophils (%) (Auto) 56 % (31-73) Lymphocytes (%) (Auto) 25 % (24-48) Monocytes (%) (Auto) 14 % (0-9) H Eosinophils (%) (Auto) 5 % (0-3) H Basophils (%) (Auto) 1 % (0-3) Neutrophils # (Auto) 2.6 x10^3uL (1.8-7.7) Lymphocytes # (Auto) 1.2 x10^3/uL (1.0-4.8) Monocytes # (Auto) 0.6 x10^3/uL (0.0-1.1) Eosinophils # (Auto) 0.2 x10^3/uL (0.0-0.7) Basophils # (Auto) 0.0 x10^3/uL (0.0-0.2) Sodium Level 142 mmol/L (136-145) Potassium Level 4.5 mmol/L (3.5-5.1) Chloride Level 108 mmol/L (98-107) H Carbon Dioxide Level 29 mmol/L (21-32) Anion Gap 5 (6-14) L Blood Urea Nitrogen 20 mg/dL (7-20) Creatinine 1.1 mg/dL (0.6-1.0) H Estimated GFR (Cockcroft-Gault) 48.6 BUN/Creatinine Ratio 18 (6-20) Glucose Level 91 mg/dL (70-99) Calcium Level 8.6 mg/dL (8.5-10.1) Total Bilirubin 0.4 mg/dL (0.2-1.0) Aspartate Amino Transferase (AST) 31 U/L (15-37) Alanine Aminotransferase (ALT) 30 U/L (14-59) Alkaline Phosphatase 38 U/L (46-116) L Total Protein 5.8 g/dL (6.4-8.2) L Albumin 2.9 g/dL (3.4-5.0) L Albumin/Globulin Ratio 1.0 (1.0-1.7) Current Medications: I have reviewed the current psychotropics carefully including drug interactions. Risk benefit ratio favors no change other than as noted in my dictated progress note. Diagnosis: Problems: (1) Anxiety disorder (2) Bipolar affective, mixed, sev w/ psych (3) Psychosis, atypical (4) Schizoaffective disorder (5) Alcoholic psychosis NIGHAT ORTIZ MD Sep 24, 2019 20:04
[2019-09-24] MEDS: traZODone 50 MG TABLET. PO PRN (22:15)
[2019-09-24] MEDS: risperiDONE 0.25 MG TABLET. PO SCH (22:16)
[2019-09-25] MEDS: LEVOTHYROXINE 75 MCG TABLET PO SCH (05:17)
[2019-09-25] MEDS: PANTOPRAZOLE 40 MG TABLET. PO SCH (05:17)
[2019-09-25] MEDS: VILANTEROL TR INH SCH (05:19)
[2019-09-25] MEDS: LEVALBUTEROL TARTRATE INH PRN ×2 (05:19→22:01)
[2019-09-25] MEDS: METHYL SALICYLATE/MENTHOL TOPICAL OINTMENT 57GM TUBE. TP PRN (05:19)
[2019-09-25] MEDS: UMECLIDINIUM BRM INH SCH (05:19)
[2019-09-25 05:57] VITALS: BP 116/71
[2019-09-25] MEDS: traMADol 50 MG TABLET PO SCH ×2 (08:24→22:00)
[2019-09-25] MEDS: MELOXICAM 15 MG TABLET. PO SCH (08:24)
[2019-09-25] MEDS: SERTRALINE 50 MG TABLET. PO SCH (08:24)
[2019-09-25] MEDS: RALOXIFENE 60 MG TABLET. PO SCH (08:24)
[2019-09-25] MEDS: NICOTINE 21MG PATCH. TD SCH (08:24)
[2019-09-25 15:48] VITALS: BP 108/70
--- NOTE | 2019-09-25 21:53 | PDOC ---
Exam Note: [place] Note: Please also refer to the separate dictated note~for this date of service dictated separately.~Patient seen individually. Discussed the patient with Nursing staff reviewed the chart.~Reviewed interim history and current functioning. Reviewed vital signs,~Labs/ Radiology~and current medications noted below. Continue current treatment with the changes noted in the dictated addendum note Assessment: Vital Signs/I&O: Vital Signs Date Time Temp Pulse Resp B/P (MAP) Pulse Ox O2 Delivery O2 Flow Rate FiO2 09/25/19 15:48 97.8 75 16 108/70 (83) 94 09/24/19 06:26 Room Air I & O 09/24/19 09/24/19 09/25/19 15:00 23:00 07:00 Intake Total 840 ml 480 ml Balance 840 ml 480 ml Current Medications: Meds: Current Medications Medications (Trade) Dose Ordered Sig/Theo Route PRN Reason Start Time Stop Time Status Last Admin Dose Admin Sertraline HCl (Zoloft) 50 mg DAILY PO 09/25/19 09:00 09/25/19 08:24 I have reviewed the current psychotropics carefully including drug interactions. Risk benefit ratio favors no change other than as noted in my dictated progress note. Diagnosis: Problems: (1) Anxiety disorder (2) Bipolar affective, mixed, sev w/ psych (3) Psychosis, atypical (4) Schizoaffective disorder (5) Alcoholic psychosis NIGHAT ORTIZ MD Sep 25, 2019 21:53
[2019-09-25] MEDS: traZODone 50 MG TABLET. PO PRN (22:00)
[2019-09-25] MEDS: risperiDONE 0.25 MG TABLET. PO SCH (22:00)
[2019-09-26] MEDS: LEVALBUTEROL TARTRATE INH PRN ×2 (05:12→22:06)
[2019-09-26] MEDS: UMECLIDINIUM BRM INH SCH (05:12)
[2019-09-26] MEDS: PANTOPRAZOLE 40 MG TABLET. PO SCH (05:12)
[2019-09-26] MEDS: VILANTEROL TR INH SCH (05:12)
[2019-09-26] MEDS: LEVOTHYROXINE 75 MCG TABLET PO SCH (05:12)
[2019-09-26] MEDS: METHYL SALICYLATE/MENTHOL TOPICAL OINTMENT 57GM TUBE. TP PRN (05:13)
[2019-09-26 05:55] VITALS: BP 142/83
[2019-09-26] MEDS: MELOXICAM 15 MG TABLET. PO SCH (08:01)
[2019-09-26] MEDS: SERTRALINE 50 MG TABLET. PO SCH (08:01)
[2019-09-26] MEDS: RALOXIFENE 60 MG TABLET. PO SCH (08:01)
[2019-09-26] MEDS: NICOTINE 21MG PATCH. TD SCH (08:01)
[2019-09-26] MEDS: traMADol 50 MG TABLET PO SCH ×2 (08:03→22:06)
[2019-09-26 16:09] VITALS: BP 112/68
--- NOTE | 2019-09-26 20:35 | PDOC ---
Exam Note: [place] Note: Please also refer to the separate dictated note~for this date of service dictated separately.~Patient seen individually. Discussed the patient with Nursing staff reviewed the chart.~Reviewed interim history and current functioning. Reviewed vital signs,~Labs/ Radiology~and current medications noted below. Continue current treatment with the changes noted in the dictated addendum note Assessment: Vital Signs/I&O: Vital Signs Date Time Temp Pulse Resp B/P (MAP) Pulse Ox O2 Delivery O2 Flow Rate FiO2 09/26/19 16:09 97.9 70 16 112/68 (83) 94 09/24/19 06:26 Room Air I & O 09/25/19 09/25/19 09/26/19 15:00 23:00 07:00 Intake Total 720 ml 360 ml Balance 720 ml 360 ml Current Medications: I have reviewed the current psychotropics carefully including drug interactions. Risk benefit ratio favors no change other than as noted in my dictated progress note. Diagnosis: Problems: (1) Anxiety disorder (2) Bipolar affective, mixed, sev w/ psych (3) Psychosis, atypical (4) Schizoaffective disorder (5) Alcoholic psychosis NIGHAT ORTIZ MD Sep 26, 2019 20:35
--- NOTE | 2019-09-26 21:52 | PN ---
DATE: 09/24/2019 PSYCHIATRIC PROGRESS NOTE This late entry 09/24/2019 covers elements not covered in my initial note. SUBJECTIVE: I met with the patient individually. The patient slept 4-1/2 hours previous night. She remains withdrawn, isolative in her room, which is where I met with her, but no agitation noted. Less paranoid and denies active hallucinations that prompted this admission. REVIEW OF SYSTEMS: No CV, , pulmonary, eye system symptoms on review other than tiredness. MENTAL STATUS EXAM: Reasonably oriented. Speech has some latency, coherent. Abstraction fair, computation impaired, language function intact. Mood and affect, somewhat depressed. LABORATORY DATA: Reviewed. IMPRESSION: Unchanged from initial note. PLAN: No change from initial note. MAN Dae ORTIZ MD DR: SHILPA/olga JOB#: [id number] / [id number]
[2019-09-26] MEDS: risperiDONE 0.25 MG TABLET. PO SCH (22:06)
[2019-09-26] MEDS: traZODone 50 MG TABLET. PO PRN (22:06)
--- NOTE | 2019-09-26 22:31 | PN ---
DATE: 09/25/2019 PSYCHIATRIC PROGRESS NOTE This late entry 09/25/2019 covers elements not covered in my initial note. SUBJECTIVE: I met with the patient individually. The patient slept 6-3/4 hours previous night. Overall, the patient remains somewhat depressed, withdrawn, spends much time in her room. REVIEW OF SYSTEMS: Positive for some tiredness. No CV, , pulmonary, eye system symptoms on review. MENTAL STATUS EXAM: Reasonably oriented. Speech has some latency, coherent. Abstraction fair, computation impaired, language function intact. Mood and affect somewhat withdrawn, depressed. LABORATORY DATA: Reviewed. IMPRESSION: Unchanged from initial note. PLAN: No change from initial note. NIGHAT ORTIZ MD DR: SHILPA/olga JOB#: [id number] / [id number]
[2019-09-27] MEDS: PANTOPRAZOLE 40 MG TABLET. PO SCH ×2 (06:00→08:25)
[2019-09-27] MEDS: LEVOTHYROXINE 75 MCG TABLET PO SCH ×2 (06:00→08:23)
[2019-09-27 06:13] VITALS: BP 112/76
[2019-09-27] MEDS: SERTRALINE 50 MG TABLET. PO SCH (08:24)
[2019-09-27] MEDS: RALOXIFENE 60 MG TABLET. PO SCH (08:24)
[2019-09-27] MEDS: MELOXICAM 15 MG TABLET. PO SCH (08:25)
[2019-09-27] MEDS: NICOTINE 21MG PATCH. TD SCH (08:25)
[2019-09-27] MEDS: traMADol 50 MG TABLET PO SCH ×2 (08:25→22:45)
[2019-09-27] MEDS: UMECLIDINIUM BRM INH SCH (08:26)
[2019-09-27] MEDS: VILANTEROL TR INH SCH (08:26)
[2019-09-27] MEDS: LEVALBUTEROL TARTRATE INH PRN (08:27)
--- NOTE | 2019-09-27 12:08 | TX PLAN ---
Interdisciplinary Tx Plan Admission Information Sep 18, 2019 at 16:48 Legal Status (on Admission): Voluntary DPOA/Guardian Name: Evangelina Edwards Contact Verified Code Status: Full Code Allergies: Coded Allergies: Corticosteroids (Glucocorticoids) (Verified Allergy, Unknown, 09/18/19) Milk Containing Products (Verified Allergy, Unknown, 09/18/19) NSAIDS (Non-Steroidal Anti-Inflamma (Verified Allergy, Unknown, 09/18/19) Penicillins (Verified Allergy, Unknown, 09/18/19) aspirin (Verified Allergy, Unknown, 09/18/19) duloxetine (Verified Allergy, Unknown, 09/18/19) Diagnoses Primary Diagnosis: Psychotic D/O, unspecified Reasons for Admission: Delusions, Hallucinations, Confusion/Disoriented, Poor impulse control Problem in Patient's Words: Obviously not medication compliant and having bizarre behaviors. Additional Admission Comments: According to the intake, pt told her son that she is seeing figures trying to kill her and to call the police to her home. Pt was found nose to the wall talking to it; has not taken medications for months. Problems Active Problems: Hallucinating Withdrawn to self Agitated Inactive Problems: Medication compliant Pt Strengths/Limitations Ability for [place]: Poor Cognitive Functioning/Ability: Fair Communication Skills/Ability: Good Financial Resources: Fair Insight/Judgement: Poor Intellectual Ability: Good Physical Health: Poor Stability in Family: Good Stability in School/Work: Poor Verbal Skills: Fair Discharge Criteria Discharge Criteria: Able meet basic life need, Adequate arrangements @DC, Adequate self-care, Improved behavior, Improved mood/thought Other Discharge Comments: Family is looking for placement Preliminary Discharge Plan Preliminary DC Plan: Placement Needed, Other Special Precautions Fall Risk: Low Initial D/C Plan At this time, pt family is considering placement; apartment alone versus [facility] Identified Discharge Needs: The family is in the process of looking for placement for pt. Prior to pt was living alone and they realize this may not be an option. Currently Utilized Resources Currently Utilized Resources/P: None Referrals Community Resources: Will need to establish a Primary Care Physician at discharge Additional Information Pt son and daughters are concerned about pt condition and what their discharge options are available at this time. Pt son did not that pt was an alcoholic for many years; however, has not drank in the last 9 years that they are aware of. Identified Problems/Hx/Goals Objectives/Short-Term Goals Short Term Goals: Dec. Hallucination/Delus, Dec. Symp. 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
[2019-09-27 16:09] VITALS: BP 108/69
[2019-09-27] MEDS: MAG HYDROX/AL HYDROX/SIMETH 30 ML ORAL.SUSP PO PRN (20:26)
--- NOTE | 2019-09-27 20:53 | PDOC ---
Exam Note: [place] Note: Please also refer to the separate dictated note~for this date of service dictated separately.~Patient seen individually. Discussed the patient with Nursing staff reviewed the chart.~Reviewed interim history and current functioning. Reviewed vital signs,~Labs/ Radiology~and current medications noted below. Continue current treatment with the changes noted in the dictated addendum note Assessment: Vital Signs/I&O: Vital Signs Date Time Temp Pulse Resp B/P (MAP) Pulse Ox O2 Delivery O2 Flow Rate FiO2 09/27/19 16:09 98.3 72 18 108/69 (82) 97 09/24/19 06:26 Room Air I & O 09/26/19 09/26/19 09/27/19 15:00 23:00 07:00 Intake Total 360 ml 600 ml Balance 360 ml 600 ml Current Medications: I have reviewed the current psychotropics carefully including drug interactions. Risk benefit ratio favors no change other than as noted in my dictated progress note. Diagnosis: Problems: (1) Anxiety disorder (2) Bipolar affective, mixed, sev w/ psych (3) Psychosis, atypical (4) Schizoaffective disorder (5) Alcoholic psychosis NIGHAT ORTIZ MD Sep 27, 2019 20:53
[2019-09-27] MEDS: traZODone 50 MG TABLET. PO PRN (22:43)
[2019-09-27] MEDS: risperiDONE 0.25 MG TABLET. PO SCH (22:43)
--- NOTE | 2019-09-28 00:08 | PN ---
DATE: 09/26/2019 PSYCHIATRIC PROGRESS NOTE This late entry 09/26/2019 covers the elements not covered in my initial note. SUBJECTIVE: I met with the patient evening of 09/26/2019. The patient has been quiet, withdrawn, takes her medications whole. I met with her in her room, still depressed. Complains of some back pain. REVIEW OF SYSTEMS: No CV, , pulmonary, eye system symptoms on review. MENTAL STATUS EXAM: Reasonably oriented. Speech has some latency, coherent. Abstraction fair. Computation impaired. Language function intact. Attention span short. Mood and affect still withdrawn. LABORATORY DATA: Reviewed. IMPRESSION: Unchanged from initial note. PLAN: No change from initial note. NIGHAT ORTIZ MD DR: SHILPA/olga JOB#: [id number] / [id number]
[2019-09-28 05:44] VITALS: BP 109/69
[2019-09-28] MEDS: traMADol 50 MG TABLET PO SCH ×2 (08:45→22:03)
[2019-09-28] MEDS: RALOXIFENE 60 MG TABLET. PO SCH (08:45)
[2019-09-28] MEDS: VILANTEROL TR INH SCH ×2 (08:45→08:46)
[2019-09-28] MEDS: UMECLIDINIUM BRM INH SCH ×2 (08:45→08:46)
[2019-09-28] MEDS: NICOTINE 21MG PATCH. TD SCH (08:45)
[2019-09-28] MEDS: MELOXICAM 15 MG TABLET. PO SCH (08:45)
[2019-09-28] MEDS ORDERED: SERTRALINE 25 MG TABLET. PO SCH (09:00)
[2019-09-28 15:47] VITALS: BP 113/73
--- NOTE | 2019-09-28 20:35 | PDOC ---
Exam Note: [place] Note: Please also refer to the separate dictated note~for this date of service dictated separately.~Patient seen individually. Discussed the patient with Nursing staff reviewed the chart.~Reviewed interim history and current functioning. Reviewed vital signs,~Labs/ Radiology~and current medications noted below. Continue current treatment with the changes noted in the dictated addendum note Assessment: Vital Signs/I&O: Vital Signs Date Time Temp Pulse Resp B/P (MAP) Pulse Ox O2 Delivery O2 Flow Rate FiO2 09/28/19 15:47 98.0 74 16 113/73 (86) 92 09/24/19 06:26 Room Air I & O 09/27/19 09/27/19 09/28/19 15:00 23:00 07:00 Intake Total 840 ml 460 ml Balance 840 ml 460 ml Current Medications: Meds: Current Medications Medications (Trade) Dose Ordered Sig/Theo Route PRN Reason Start Time Stop Time Status Last Admin Dose Admin Sertraline HCl (Zoloft) 75 mg DAILY PO 09/28/19 09:00 09/28/19 16:39 DC 09/28/19 08:45 I have reviewed the current psychotropics carefully including drug interactions. Risk benefit ratio favors no change other than as noted in my dictated progress note. Diagnosis: Problems: (1) Anxiety disorder (2) Bipolar affective, mixed, sev w/ psych (3) Psychosis, atypical (4) Schizoaffective disorder (5) Alcoholic psychosis NIGHAT ORTIZ MD Sep 28, 2019 20:35
--- NOTE | 2019-09-28 20:57 | PN ---
DATE: 09/27/2019 PSYCHIATRIC PROGRESS NOTE This late entry 09/27/2019 covers elements not covered in my initial note. SUBJECTIVE: I met with the patient in the evening. Per nursing report by YUKI Adams, the patient slept 4 hours previous night. She has been somewhat anxious, complains of pain in her hip. We will defer to Dr. Contreras and noted to be grumpy per nursing report, somewhat depressed, withdrawn, but less so than before. REVIEW OF SYSTEMS: Other than above, no CV, , pulmonary, eye system symptoms on review. MENTAL STATUS EXAM: Reasonably oriented. Speech has some latency, coherent. Abstraction fair, computation impaired, language function intact, attention span short. Mood and affect withdrawn. LABORATORY DATA: Reviewed. IMPRESSION: Unchanged from initial note. PLAN: No change from initial note. MAN Dae ORTIZ MD DR: SHILPA/olga JOB#: [id number] / [id number]
[2019-09-28] MEDS: risperiDONE 0.25 MG TABLET. PO SCH (22:01)
[2019-09-28] MEDS: traZODone 50 MG TABLET. PO PRN (22:01)
[2019-09-29] MEDS: LEVOTHYROXINE 75 MCG TABLET PO SCH (05:27)
[2019-09-29] MEDS: PANTOPRAZOLE 40 MG TABLET. PO SCH (05:27)
[2019-09-29 06:01] VITALS: BP 132/83
[2019-09-29] MEDS: UMECLIDINIUM BRM INH SCH (09:00)
[2019-09-29] MEDS: MELOXICAM 15 MG TABLET. PO SCH (09:00)
[2019-09-29] MEDS: VILANTEROL TR INH SCH (09:00)
[2019-09-29] MEDS: traMADol 50 MG TABLET PO SCH ×3 (09:00→22:18)
[2019-09-29] MEDS: RALOXIFENE 60 MG TABLET. PO SCH (09:00)
[2019-09-29] MEDS: NICOTINE 21MG PATCH. TD SCH (10:54)
[2019-09-29 15:47] VITALS: BP 143/82
[2019-09-29] MEDS: risperiDONE 0.25 MG TABLET. PO SCH ×2 (21:00→22:18)
[2019-09-29] MEDS: SERTRALINE 25 MG TABLET. PO SCH (21:00)
--- NOTE | 2019-09-29 21:36 | PN ---
DATE: 09/28/2019 PSYCHIATRIC PROGRESS NOTE This late entry 09/28/2019 covers the elements not covered in my initial note. SUBJECTIVE: I met with the patient in the evening. Per YUKI Walker, the patient slept 7 hours previous night. Per nursing report, she has been grumpy, but this typical for her, somewhat withdrawn, complains of back pain as I met with her in her room. She received tramadol. She also complains of some daytime sedation. We will change the Zoloft from a.m. to bedtime to avoid this. REVIEW OF SYSTEMS: Other than this, no CV, , pulmonary, eye system symptoms on review. MENTAL STATUS EXAM: Reasonably oriented. Speech has some latency, coherent. Abstraction fair, computation impaired, and language function intact. Mood and affect somewhat withdrawn. LABORATORY DATA: Reviewed. IMPRESSION: Unchanged from initial note. PLAN: No change from initial note. Increase Zoloft to 75 mg a day after she has been on 50 mg for 3 days. Rest unchanged. MAN Dae ORTIZ MD DR: SHILPA/olga JOB#: [id number] / [id number]
[2019-09-29] MEDS: traZODone 50 MG TABLET. PO PRN (22:18)
[2019-09-29] MEDS ORDERED: ONDANSETRON ODT 4 MG TAB.RAPDIS PO PRN (22:30)
--- NOTE | 2019-09-29 23:46 | PN ---
DATE: 09/29/2019 SUBJECTIVE: The patient was seen today, met with the staff, chart reviewed. The patient is complaining of decreased sleep and claims that she has a sleep disorder and she is not sure whether she has sleep apnea, but she has been on oxygen for several years off and on. The patient apparently having multiple somatic complaints. The patient also isolating herself, stays in bed most of the time. The patient also having visual hallucinations, sometimes see figures, people moving, trying to kill her. OBSERVATION: VITAL SIGNS: Temperature 97.8, blood pressure 132/83, pulse 72, respirations 20, O2 sat 93%. GENERAL: Slept about 6 hours last night. The patient's appetite is fair. MEDICATIONS: The patient's current medications include Risperdal 0.25 mg daily, trazodone 50 mg at night p.r.n., olanzapine 2.5 mg q. 2 hours p.r.n. The patient was taken off the Zoloft. LABORATORY DATA: The patient's lab reviewed. ASSESSMENT: Psychotic disorder, unspecified; schizoaffective disorder, bipolar type; anxiety disorder, unspecified. PLAN: To continue with the treatment. LENGTH OF STAY: 5-7 days. LUIS E CHAO MD DR: SOLIS/olga JOB#: [id number] / [id number]
[2019-09-30] MEDS: PANTOPRAZOLE 40 MG TABLET. PO SCH (05:25)
[2019-09-30] MEDS: LEVOTHYROXINE 75 MCG TABLET PO SCH (05:25)
[2019-09-30 06:04] VITALS: BP 124/73
[2019-09-30] MEDS: RALOXIFENE 60 MG TABLET. PO SCH (08:24)
[2019-09-30] MEDS: MELOXICAM 15 MG TABLET. PO SCH (08:24)
[2019-09-30] MEDS: NICOTINE 21MG PATCH. TD SCH (08:24)
[2019-09-30] MEDS: traMADol 50 MG TABLET PO SCH ×2 (08:24→21:00)
[2019-09-30] MEDS: METHYL SALICYLATE/MENTHOL TOPICAL OINTMENT 57GM TUBE. TP PRN (08:25)
[2019-09-30] MEDS: VILANTEROL TR INH SCH (08:27)
[2019-09-30] MEDS: UMECLIDINIUM BRM INH SCH (08:27)
[2019-09-30] MEDS: LEVALBUTEROL TARTRATE INH PRN (08:27)
[2019-09-30 16:15] VITALS: BP 105/65
[2019-09-30] MEDS: MAG HYDROX/AL HYDROX/SIMETH 30 ML ORAL.SUSP PO PRN (16:17)
[2019-09-30] MEDS: risperiDONE 0.25 MG TABLET. PO SCH (21:00)
[2019-09-30] MEDS: SERTRALINE 25 MG TABLET. PO SCH (21:00)
[2019-10-01] MEDS: PANTOPRAZOLE 40 MG TABLET. PO SCH (05:04)
[2019-10-01] MEDS: LEVOTHYROXINE 75 MCG TABLET PO SCH (05:04)
--- NOTE | 2019-10-01 05:23 | PN ---
DATE: 09/30/2019 SUBJECTIVE: The patient was seen today, met with the staff, chart reviewed. The patient is still having problems including refusing to take medication at time. The patient is not having any auditory or visual hallucinations at this time. The patient still guarded. The patient is also having multiple physical complaints. The patient states she is very uncomfortable because she is having difficulty breathing in the night and claims that she has been on oxygen for several years. The patient also has multiple physical complaints and she has a tendency to isolate herself and stay in bed most of the time. OBSERVATION: VITAL SIGNS: Temperature 98.4, blood pressure 124/73, pulse 68, respirations 16, O2 sat 95%. GENERAL: Slept about 6 hours last night. The patient's appetite is fair. MEDICATIONS: The patient's current medications include Risperdal 0.25 mg daily, trazodone 50 mg at night p.r.n., olanzapine 2.5 mg q. 2 hours p.r.n. ASSESSMENT: Psychotic disorder, unspecified; schizoaffective disorder, bipolar type; anxiety disorder, unspecified. PLAN: To continue treatment. Discharge plans in 3-5 days. LUIS E CHAO MD DR: SOLIS/olga JOB#: [id number] / [id number]
[2019-10-01 05:46] VITALS: BP 123/76
[2019-10-01 06:59] LABS: BASO % 0 % (0-3); EOS # 0.2 x10^3/uL (0.0-0.7); EOS % 3 % (0-3); HEMATOCRIT 34.1 % (36.0-47.0); HEMOGLOBIN 11.1 g/dL (12.0-15.5); LYMPH # 1.4 x10^3/uL (1.0-4.8); LYMPH % 23 % (24-48); MEAN CORPUSCULAR HEMOGLOBIN 32 pg (25-35); MEAN CORPUSCULAR HGB CONC 33 g/dL (31-37); MEAN CORPUSCULAR VOLUME 99 fL (79-100); MONO # 0.7 x10^3/uL (0.0-1.1); MONO % 12 % (0-9); NEUT # 3.8 x10^3uL (1.8-7.7); NEUT % 61 % (31-73); PLATELET COUNT 196 x10^3/uL (140-400); RED BLOOD COUNT 3.45 x10^6/uL (3.50-5.40); RED CELL DISTRIBUTION WIDTH 12.3 % (11.5-14.5); WHITE BLOOD COUNT 6.2 x10^3/uL (4.0-11.0)
[2019-10-01 07:08] LABS: ALBUMIN 2.8 g/dL (3.4-5.0); CALCIUM 8.4 mg/dL (8.5-10.1); CREATININE 1.2 mg/dL (0.6-1.0); GFR 43.9; POTASSIUM 4.7 mmol/L (3.5-5.1); TOTAL BILIRUBIN 0.4 mg/dL (0.2-1.0); TOTAL PROTEIN 5.7 g/dL (6.4-8.2)
[2019-10-01] MEDS: RALOXIFENE 60 MG TABLET. PO SCH (07:59)
[2019-10-01] MEDS: VILANTEROL TR INH SCH (07:59)
[2019-10-01] MEDS: MELOXICAM 15 MG TABLET. PO SCH (07:59)
[2019-10-01] MEDS: traMADol 50 MG TABLET PO SCH ×2 (07:59→21:00)
[2019-10-01] MEDS: UMECLIDINIUM BRM INH SCH (07:59)
[2019-10-01] MEDS: NICOTINE 21MG PATCH. TD SCH (08:00)
[2019-10-01] MEDS ORDERED: SERTRALINE 50 MG TABLET. PO SCH (09:00)
[2019-10-01 16:24] VITALS: BP 103/68
[2019-10-01] MEDS: SERTRALINE 50 MG TABLET. PO SCH (21:00)
--- NOTE | 2019-10-02 00:28 | PN ---
DATE: 10/01/2019 SUBJECTIVE: The patient was seen today, met with the staff, chart reviewed. The patient is still refusing to take her medications at times. The patient is able to walk. The patient continues to have high level of anxiety and multiple somatic complaints. OBSERVATION: VITAL SIGNS: Temperature 97.9, blood pressure 123/76, pulse 67, respirations 16, O2 sat 95%. GENERAL: Slept about 6 hours last night. The patient's appetite improved. MEDICATIONS: Reviewed. Currently on Risperdal 0.25 mg daily, trazodone 50 mg at night p.r.n. and olanzapine 2.5 mg q. 2 hours p.r.n. ASSESSMENT: 1. Psychotic disorder, unspecified. 2. Schizoaffective disorder, bipolar type. 3. Anxiety disorder, unspecified. PLAN: To continue with the treatment. LENGTH OF STAY: 3-4 days. LUIS E CHAO MD DR: SOLIS/olga JOB#: [id number] / [id number]
[2019-10-02] MEDS: LEVOTHYROXINE 75 MCG TABLET PO SCH (05:28)
[2019-10-02] MEDS: PANTOPRAZOLE 40 MG TABLET. PO SCH (05:28)
[2019-10-02 06:46] VITALS: BP 145/71
[2019-10-02] MEDS: RALOXIFENE 60 MG TABLET. PO SCH (08:03)
[2019-10-02] MEDS: traMADol 50 MG TABLET PO SCH ×2 (08:03→21:00)
[2019-10-02] MEDS: MELOXICAM 15 MG TABLET. PO SCH (08:03)
[2019-10-02] MEDS: NICOTINE 21MG PATCH. TD SCH (08:03)
[2019-10-02] MEDS: UMECLIDINIUM BRM INH SCH (08:47)
[2019-10-02] MEDS: VILANTEROL TR INH SCH (08:47)
[2019-10-02 15:55] VITALS: BP 131/77
[2019-10-02] MEDS: SERTRALINE 50 MG TABLET. PO SCH (21:05)
[2019-10-02] MEDS: traZODone 50 MG TABLET. PO PRN (21:06)
[2019-10-02] MEDS: MAGNESIUM HYDROXIDE 2,400 MG/30 ML ORAL.SUSP. PO PRN (21:10)
--- NOTE | 2019-10-02 22:11 | PN ---
DATE: 10/02/2019 SUBJECTIVE: The patient was seen today, met with the staff, chart reviewed. The patient is still refusing to take her medications. She has marked blunting of affect. She is able to walk. No falls. The patient is also experiencing high levels of anxiety and multiple physical complaints. OBSERVATION: VITAL SIGNS: Temperature 97.9, blood pressure 131/77, pulse 84, respirations 16, O2 sat 92%. GENERAL: Slept about 5 hours last night. The patient's appetite is fair. The patient is not having any side effects to the medications. The patient's lab reviewed. ASSESSMENT: 1. Psychotic disorder, unspecified. 2. Schizoaffective disorder, bipolar type. 3. Anxiety disorder, unspecified. PLAN: To continue with the treatment. LENGTH OF STAY: 3-4 days. LUIS E CHAO MD DR: SOLIS/olga JOB#: [id number] / [id number]
[2019-10-03] MEDS: PANTOPRAZOLE 40 MG TABLET. PO SCH (06:00)
[2019-10-03] MEDS: LEVOTHYROXINE 75 MCG TABLET PO SCH (06:00)
[2019-10-03 06:27] VITALS: BP 123/76
[2019-10-03] MEDS: NICOTINE 21MG PATCH. TD SCH (08:21)
[2019-10-03] MEDS: MELOXICAM 15 MG TABLET. PO SCH (08:22)
[2019-10-03] MEDS: RALOXIFENE 60 MG TABLET. PO SCH (08:22)
[2019-10-03] MEDS: traMADol 50 MG TABLET PO SCH ×2 (08:22→21:44)
[2019-10-03] MEDS: VILANTEROL TR INH SCH (08:28)
[2019-10-03] MEDS: UMECLIDINIUM BRM INH SCH (08:28)
[2019-10-03 15:34] VITALS: BP 130/83
[2019-10-03] MEDS: SERTRALINE 50 MG TABLET. PO SCH (21:44)
[2019-10-03] MEDS: traZODone 50 MG TABLET. PO PRN (21:44)
--- NOTE | 2019-10-03 22:55 | PN ---
DATE: 10/03/2019 SUBJECTIVE: The patient was seen today, met with the staff, chart reviewed. The patient continues to exhibit blunting of affect. Denies of any physical problems. No major behavior problems. OBSERVATION: VITAL SIGNS: Temperature 97.8, blood pressure 131/77, pulse 84, respirations 16, O2 sat 92%. MEDICATIONS: The patient's current medications include Zoloft 50 mg at night, trazodone 50 mg at night. She is also on olanzapine 2.5 mg q.4 hours p.r.n. The patient is not having any side effects. The patient did not have any falls. ASSESSMENT: 1. Psychotic disorder, unspecified. 2. Schizoaffective disorder, bipolar type. 3. Anxiety disorder, unspecified. PLAN: To continue with the treatment. LENGTH OF STAY: 3-4 days. LUIS E CHAO MD DR: SOLIS/olga JOB#: [id number] / [id number]
[2019-10-04] MEDS: LEVOTHYROXINE 75 MCG TABLET PO SCH (05:54)
[2019-10-04] MEDS: PANTOPRAZOLE 40 MG TABLET. PO SCH (05:54)
[2019-10-04 05:57] VITALS: BP 129/79
[2019-10-04] MEDS: RALOXIFENE 60 MG TABLET. PO SCH (08:23)
[2019-10-04] MEDS: MELOXICAM 15 MG TABLET. PO SCH (08:24)
[2019-10-04] MEDS: traMADol 50 MG TABLET PO SCH ×2 (08:24→22:00)
[2019-10-04] MEDS: NICOTINE 21MG PATCH. TD SCH (08:24)
[2019-10-04] MEDS: UMECLIDINIUM BRM INH SCH ×2 (08:25→08:28)
[2019-10-04] MEDS: VILANTEROL TR INH SCH ×2 (08:25→08:28)
[2019-10-04 15:39] VITALS: BP 115/76
[2019-10-04] MEDS: traZODone 100 MG TABLET. PO PRN (21:55)
[2019-10-04] MEDS: SERTRALINE 50 MG TABLET. PO SCH (21:55)
[2019-10-04] MEDS: MAGNESIUM HYDROXIDE 2,400 MG/30 ML ORAL.SUSP. PO PRN (22:00)
--- NOTE | 2019-10-05 01:13 | PN ---
DATE: 10/04/2019 SUBJECTIVE: The patient was seen today, met with the staff, chart reviewed. The patient continues to show improvement. Denies of any major problems. The patient continues to show marked blunting of affect. The patient denies of any physical problems. OBJECTIVE: VITAL SIGNS: Temperature 97.4, blood pressure 129/79, pulse 84, respirations 22, O2 sat 94%. Slept only about 2 hours last night. The patient was able to hold a reasonable conversation and states she is having difficulty falling asleep, apparently waking up quite frequently. The patient not admits to feeling depressed. No other physical complaints. MEDICATIONS: The patient's current medications include Zoloft 50 mg at night, trazodone 50 mg at night, olanzapine 2.5 mg q.4 hours p.r.n. The patient denies of any falls and no side effects to medications. ASSESSMENT: 1. Psychotic disorder, unspecified. 2. Schizoaffective disorder, bipolar type. 3. Anxiety disorder, unspecified. PLAN: To continue with the treatment. LENGTH OF STAY: 3-4 days. LUIS E CHAO MD DR: SOLIS/ogla JOB#: [id number] / [id number]
[2019-10-05] MEDS: PANTOPRAZOLE 40 MG TABLET. PO SCH (05:42)
[2019-10-05] MEDS: LEVOTHYROXINE 75 MCG TABLET PO SCH (05:42)
[2019-10-05 06:03] VITALS: BP 100/64
[2019-10-05] MEDS: RALOXIFENE 60 MG TABLET. PO SCH (08:24)
[2019-10-05] MEDS: traMADol 50 MG TABLET PO SCH ×2 (08:24→22:03)
[2019-10-05] MEDS: MELOXICAM 15 MG TABLET. PO SCH (08:24)
[2019-10-05] MEDS: VILANTEROL TR INH SCH (08:25)
[2019-10-05] MEDS: NICOTINE 21MG PATCH. TD SCH (08:25)
[2019-10-05] MEDS: UMECLIDINIUM BRM INH SCH (08:25)
[2019-10-05 15:56] VITALS: BP 98/55
[2019-10-05] MEDS: SERTRALINE 50 MG TABLET. PO SCH (22:03)
--- NOTE | 2019-10-06 00:55 | PN ---
DATE: 10/05/2019 SUBJECTIVE: The patient was seen today, met with the staff, chart reviewed. The patient continues to show improvement, not presenting with any major behavior problems. OBJECTIVE: VITAL SIGNS: Temperature 97.5, blood pressure 100/64, pulse is 70, respirations 16, O2 sat 91%. GENERAL: Slept about 8 hours last night. The patient's appetite improved. The patient did not have any falls. CURRENT MEDICATIONS: Include prozac, trazodone 50 mg at night, olanzapine 2.5 mg q. 4 hours p.r.n. The patient is not having any side effects. ASSESSMENT: 1. Psychotic disorder, unspecified. 2. Schizoaffective disorder, bipolar type. 3. Anxiety disorder, unspecified. PLAN: To continue with the treatment. The patient may need placement in assisted living. LENGTH OF STAY: 2 to 3 days. LUIS E CHAO MD DR: SOLIS/olga JOB#: [id number] / [id number] [place]
[2019-10-06] MEDS: traZODone 100 MG TABLET. PO PRN (01:17)
[2019-10-06] MEDS: PANTOPRAZOLE 40 MG TABLET. PO SCH (05:53)
[2019-10-06] MEDS: LEVOTHYROXINE 75 MCG TABLET PO SCH (05:53)
[2019-10-06 06:04] VITALS: BP_SYST 119; BP_SYST 121; BP_DIAS 74; BP_DIAS 75
[2019-10-06] MEDS: traMADol 50 MG TABLET PO SCH ×2 (08:21→21:00)
[2019-10-06] MEDS: RALOXIFENE 60 MG TABLET. PO SCH (08:21)
[2019-10-06] MEDS: MELOXICAM 15 MG TABLET. PO SCH (08:21)
[2019-10-06] MEDS: VILANTEROL TR INH SCH (08:22)
[2019-10-06] MEDS: UMECLIDINIUM BRM INH SCH (08:22)
[2019-10-06] MEDS: NICOTINE 14MG PATCH. TD SCH (08:22)
--- NOTE | 2019-10-06 12:23 | TX PLAN ---
Interdisciplinary Tx Plan Admission Information Sep 18, 2019 at 16:48 Legal Status (on Admission): Voluntary DPOA/Guardian Name: Evangelina Edwards Contact Verified Code Status: Full Code Allergies: Coded Allergies: Corticosteroids (Glucocorticoids) (Verified Allergy, Unknown, 09/18/19) Milk Containing Products (Verified Allergy, Unknown, 09/18/19) NSAIDS (Non-Steroidal Anti-Inflamma (Verified Allergy, Unknown, 09/18/19) Penicillins (Verified Allergy, Unknown, 09/18/19) aspirin (Verified Allergy, Unknown, 09/18/19) duloxetine (Verified Allergy, Unknown, 09/18/19) Diagnoses Primary Diagnosis: Psychotic D/O, unspecified Reasons for Admission: Delusions, Hallucinations, Confusion/Disoriented, Poor impulse control Problem in Patient's Words: Obviously not medication compliant and having bizarre behaviors. Additional Admission Comments: According to the intake, pt told her son that she is seeing figures trying to kill her and to call the police to her home. Pt was found nose to the wall talking to it; has not taken medications for months. Problems Active Problems: Hallucinating Withdrawn to self Agitated Inactive Problems: Medication compliant Pt Strengths/Limitations Ability for [place]: Poor Cognitive Functioning/Ability: Fair Communication Skills/Ability: Good Financial Resources: Fair Insight/Judgement: Poor Intellectual Ability: Good Physical Health: Poor Stability in Family: Good Stability in School/Work: Poor Verbal Skills: Fair Discharge Criteria Discharge Criteria: Able meet basic life need, Adequate arrangements @DC, Adequate self-care, Improved behavior, Improved mood/thought Other Discharge Comments: Family is looking for placement Preliminary Discharge Plan Preliminary DC Plan: Placement Needed, Other Special Precautions Fall Risk: Low Initial D/C Plan At this time, pt family is considering placement; apartment alone versus PENITENTIARY Identified Discharge Needs: The family is in the process of looking for placement for pt. Prior to pt was living alone and they realize this may not be an option. Currently Utilized Resources Currently Utilized Resources/P: None Referrals Community Resources: Will need to establish a Primary Care Physician at discharge Identified Problems/Hx/Goals Objectives/Short-Term Goals Short Term Goals: Dec. Hallucination/Delus, Dec. Symp. 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 Treatment Plan Explained Patient/Accounts Receivable Clerk had this treatment plan explained to him/her as indicated by the signature below and has been given the opportunity to ask questions and make suggestions: Date: Patient/Accounts Receivable Clerk Signature: Status Update Update WEEKLY UPDATE: Pt is medication compliant; however, continues to remain withdrawn to her room with little to no participation in group activities. Pt is found multiple times throughout the day staring at the wall and gets irritable when redirected. Pt walks around the unit with the hammer of her jacket pulled up and does not wish to be bothered. Pt son will be planning to look at placing pt in the community within her own apartment and resources through the [facility] program. Pt will look towards discharging early next week. KRISTINA BIRMINGHAM Oct 06, 2019 12:23
[2019-10-06 16:48] VITALS: BP 111/63
[2019-10-06 20:33] VITALS: BP 116/74
[2019-10-06] MEDS: MAGNESIUM HYDROXIDE 2,400 MG/30 ML ORAL.SUSP. PO PRN (20:33)
[2019-10-06] MEDS: SERTRALINE 50 MG TABLET. PO SCH (21:00)
--- NOTE | 2019-10-06 23:30 | PN ---
DATE: 10/06/2019 SUBJECTIVE: The patient was seen today, met with the staff, chart reviewed. The patient continues to show improvement, still withdrawn, isolative, does not interact with other residents. The patient also totally against considering an option of going into an assisted living. The patient wants to go back to her apartment. OBSERVATION: VITAL SIGNS: Temperature 97.6, blood pressure 119/74, pulse 61, respirations 18, O2 sat 94%. Slept about 2 hours last night. The patient's behavior has improved. She denies feeling depressed. The patient has not made any negative statements. No evidence of any overt psychotic symptoms, except she is paranoid and suspicious, not trusting anyone. MEDICATIONS: The patient's current medications include Prozac at night, trazodone 50 mg at night, olanzapine 2.5 mg q.4 hours p.r.n. The patient is not having any side effects. ASSESSMENT: 1. Psychotic disorder, unspecified. 2. Schizoaffective disorder, bipolar type. 3. Anxiety disorder, unspecified. PLAN: To continue with the treatment. The patient is awaiting for placement. LENGTH OF STAY: 3-4 days. LUIS E CHAO MD DR: SOLIS/olga JOB#: [id number] / [id number] [place]
[2019-10-07] MEDS: traZODone 100 MG TABLET. PO PRN (01:02)
[2019-10-07] MEDS: PANTOPRAZOLE 40 MG TABLET. PO SCH (05:44)
[2019-10-07] MEDS: LEVOTHYROXINE 75 MCG TABLET PO SCH (05:44)
[2019-10-07 05:53] VITALS: BP 103/67
[2019-10-07] MEDS: traMADol 50 MG TABLET PO SCH ×2 (08:48→20:18)
[2019-10-07] MEDS: MELOXICAM 15 MG TABLET. PO SCH (08:48)
[2019-10-07] MEDS: RALOXIFENE 60 MG TABLET. PO SCH (08:48)
[2019-10-07] MEDS: NICOTINE 14MG PATCH. TD SCH (08:50)
[2019-10-07] MEDS: VILANTEROL TR INH SCH (09:00)
[2019-10-07] MEDS: UMECLIDINIUM BRM INH SCH (09:00)
[2019-10-07 15:56] VITALS: BP 109/63
[2019-10-07] MEDS: SERTRALINE 50 MG TABLET. PO SCH (20:19)
[2019-10-07] MEDS: MAGNESIUM HYDROXIDE 2,400 MG/30 ML ORAL.SUSP. PO PRN (20:32)
--- NOTE | 2019-10-07 23:48 | PN ---
DATE: 10/07/2019 SUBJECTIVE: The patient was seen today, met with the staff, chart reviewed. Staff reports no major behavior problems except she still withdrawn, isolative and not wanting to interact with the staff or residents. The patient still not sure with regard to discharge plans and she is insisting on going back to her apartment. OBSERVATION: VITAL SIGNS: Temperature 97.5, blood pressure 103/67, pulse 60, respirations 18, O2 sat 94%. GENERAL: Slept about 5 hours last night. The patient's appetite is fair. The patient is able to walk. No falls. LABORATORY DATA: The patient's lab reviewed. MEDICATIONS: The patient's current medications include Zoloft 50 mg at night, trazodone 50 mg at night, olanzapine 2.5 mg q. 4 hours p.r.n. The patient is not having any side effects. ASSESSMENT: 1. Psychotic disorder, unspecified. 2. Schizoaffective disorder, bipolar type. 3. Anxiety disorder, unspecified. PLAN: To continue with the treatment. The patient is awaiting for placement. LENGTH OF STAY: 4-5 days. LUIS E CHAO MD DR: SOLIS/olga JOB#: [id number] / [id number]
[2019-10-08 05:59] VITALS: BP 123/77
[2019-10-08] MEDS: PANTOPRAZOLE 40 MG TABLET. PO SCH (06:01)
[2019-10-08] MEDS: LEVOTHYROXINE 75 MCG TABLET PO SCH (06:01)
[2019-10-08 06:11] LABS: BASO % 1 % (0-3); EOS # 0.2 x10^3/uL (0.0-0.7); EOS % 4 % (0-3); HEMOGLOBIN 11.2 g/dL (12.0-15.5); LYMPH # 1.7 x10^3/uL (1.0-4.8); LYMPH % 31 % (24-48); MEAN CORPUSCULAR HEMOGLOBIN 33 pg (25-35); MEAN CORPUSCULAR HGB CONC 33 g/dL (31-37); MEAN CORPUSCULAR VOLUME 99 fL (79-100); MONO # 0.6 x10^3/uL (0.0-1.1); MONO % 11 % (0-9); NEUT # 2.8 x10^3uL (1.8-7.7); NEUT % 53 % (31-73); PLATELET COUNT 197 x10^3/uL (140-400); RED BLOOD COUNT 3.44 x10^6/uL (3.50-5.40); RED CELL DISTRIBUTION WIDTH 12.1 % (11.5-14.5); WHITE BLOOD COUNT 5.3 x10^3/uL (4.0-11.0)
[2019-10-08 06:21] LABS: ALBUMIN 2.7 g/dL (3.4-5.0); CALCIUM 8.1 mg/dL (8.5-10.1); CREATININE 1.3 mg/dL (0.6-1.0); POTASSIUM 4.9 mmol/L (3.5-5.1); TOTAL BILIRUBIN 0.2 mg/dL (0.2-1.0); TOTAL PROTEIN 5.4 g/dL (6.4-8.2)
[2019-10-08] MEDS: NICOTINE 14MG PATCH. TD SCH (08:27)
[2019-10-08] MEDS: MELOXICAM 15 MG TABLET. PO SCH (08:28)
[2019-10-08] MEDS: UMECLIDINIUM BRM INH SCH (08:28)
[2019-10-08] MEDS: VILANTEROL TR INH SCH (08:28)
[2019-10-08] MEDS: RALOXIFENE 60 MG TABLET. PO SCH (08:28)
[2019-10-08] MEDS: traMADol 50 MG TABLET PO SCH ×2 (08:28→20:39)
[2019-10-08 15:28] VITALS: BP 119/74
--- NOTE | 2019-10-09 00:31 | PN ---
DATE: 10/08/2019 SUBJECTIVE: The patient was seen today, met with the staff, chart reviewed. The patient continues to show improvement, withdrawn, isolated. The patient also observed to be staring into space, seems to be hallucinating, but when she was asked she denied. The patient has prior history of schizophrenia. The patient also isolative, does not interact with the staff or residents. OBSERVATION: VITAL SIGNS: Temperature 97.7, blood pressure 123/77, pulse 80, respirations 18, O2 sat 94%. Slept about 7 hours last night. The patient apparently not presenting with any problems. MEDICATIONS: The patient's medications include Zoloft 50 mg at night, trazodone 50 mg at night, olanzapine 2.5 mg q.4 hours p.r.n. The patient denies of any side effects. ASSESSMENT: 1. Psychotic disorder, unspecified. 2. Schizoaffective disorder, bipolar type. 3. Anxiety disorder, unspecified. PLAN: To continue with the treatment. The patient is awaiting for placement. LENGTH OF STAY: 4-5 days. LUIS E CHAO MD DR: SOLIS/olga JOB#: [id number] / [id number]
[2019-10-09] MEDS: traZODone 100 MG TABLET. PO PRN ×2 (00:39→22:12)
[2019-10-09] MEDS: LEVOTHYROXINE 75 MCG TABLET PO SCH (05:50)
[2019-10-09] MEDS: PANTOPRAZOLE 40 MG TABLET. PO SCH (05:50)
[2019-10-09 06:12] VITALS: BP 120/71
[2019-10-09] MEDS: RALOXIFENE 60 MG TABLET. PO SCH (08:07)
[2019-10-09] MEDS: MELOXICAM 15 MG TABLET. PO SCH (08:07)
[2019-10-09] MEDS: NICOTINE 14MG PATCH. TD SCH (08:08)
[2019-10-09] MEDS: SERTRALINE 50 MG TABLET. PO SCH (08:08)
[2019-10-09] MEDS: traMADol 50 MG TABLET PO SCH ×2 (08:10→22:12)
[2019-10-09] MEDS: UMECLIDINIUM BRM INH SCH (08:15)
[2019-10-09] MEDS: VILANTEROL TR INH SCH (08:15)
[2019-10-09 15:37] VITALS: BP 103/66
--- NOTE | 2019-10-10 01:12 | PN ---
DATE: 10/09/2019 SUBJECTIVE: The patient was seen today, met with the staff, chart reviewed. The patient continues to be withdrawn, isolative, stays in bed, also irritable, parra and tendency to get angry easily. The patient is minimizing her problems, even then brought her to the hospital. OBSERVATION: VITAL SIGNS: Temperature 98, blood pressure 120/71, pulse 72, respirations 20, O2 sat 99%. Slept about 6 hours last night. The patient's appetite is fair. LABORATORY DATA: The patient's lab reviewed. MEDICATIONS: The patient's current medications include Zoloft 50 mg at night, trazodone 50 mg at night, olanzapine 2.5 mg q.4 hours p.r.n. The patient denies of any other side effects. ASSESSMENT: 1. Psychotic disorder, unspecified. 2. Schizoaffective disorder, bipolar type. 3. Anxiety disorder, unspecified. PLAN: To continue with the treatment. The patient is planned for discharge sometime next week. LUIS E CHAO MD DR: SOLIS/olga JOB#: [id number] / [id number]
[2019-10-10] MEDS: PANTOPRAZOLE 40 MG TABLET. PO SCH (05:39)
[2019-10-10] MEDS: LEVOTHYROXINE 75 MCG TABLET PO SCH (05:39)
[2019-10-10 05:49] VITALS: BP 123/73
[2019-10-10] MEDS: traMADol 50 MG TABLET PO SCH ×2 (08:34→22:10)
[2019-10-10] MEDS: SERTRALINE 50 MG TABLET. PO SCH (08:34)
[2019-10-10] MEDS: MELOXICAM 15 MG TABLET. PO SCH (08:34)
[2019-10-10] MEDS: RALOXIFENE 60 MG TABLET. PO SCH (08:34)
[2019-10-10] MEDS: NICOTINE 14MG PATCH. TD SCH (08:43)
[2019-10-10] MEDS: UMECLIDINIUM BRM INH SCH (09:00)
[2019-10-10] MEDS: VILANTEROL TR INH SCH (09:00)
[2019-10-10] MEDS: POLYVINYL ALCOHOL 1.4% OPHTH SOLUTION 15ML BOTTLE. OU PRN (14:26)
[2019-10-10] MEDS: SODIUM CHLORIDE 0.65% NASAL SPRAY 45ML BOTTLE. NS PRN (14:26)
[2019-10-10] MEDS: METHYL SALICYLATE/MENTHOL TOPICAL OINTMENT 57GM TUBE. TP PRN (14:26)
[2019-10-10 16:08] VITALS: BP 133/82
[2019-10-10] MEDS: traZODone 100 MG TABLET. PO PRN (22:10)
[2019-10-11 05:28] VITALS: BP 112/74
[2019-10-11] MEDS: PANTOPRAZOLE 40 MG TABLET. PO SCH (05:40)
[2019-10-11] MEDS: LEVOTHYROXINE 75 MCG TABLET PO SCH (05:41)
[2019-10-11] MEDS: VILANTEROL TR INH SCH (08:15)
[2019-10-11] MEDS: MELOXICAM 15 MG TABLET. PO SCH (08:15)
[2019-10-11] MEDS: UMECLIDINIUM BRM INH SCH (08:15)
[2019-10-11] MEDS: RALOXIFENE 60 MG TABLET. PO SCH (08:15)
[2019-10-11] MEDS: traMADol 50 MG TABLET PO SCH ×2 (08:15→21:29)
[2019-10-11] MEDS: SERTRALINE 25 MG TABLET. PO SCH (08:16)
[2019-10-11] MEDS: NICOTINE 14MG PATCH. TD SCH (08:16)
--- NOTE | 2019-10-11 09:59 | PN ---
DATE: 10/10/2019 SUBJECTIVE: The patient was seen today, met with the staff, chart reviewed. The patient continues to isolate herself, stays in her room. The patient interacts fairly well on 1:1 and apparently she does not show much affect. The patient is also suspicious and paranoid, not trusting anyone. The patient is also refusing to change her medications. The patient also observed to be stating preoccupied and most likely she may be hallucinating auditorily because she has a past history of psychotic symptoms. LABORATORY DATA: The patient's lab reviewed. MEDICATIONS: The patient's current medications include Zoloft will be decreased to 25 mg from 50 mg at night and the patient is also started on Zyprexa 5 mg at night because of the paranoia and delusional thinking. ASSESSMENT: 1. Psychotic disorder, unspecified. 2. Schizoaffective disorder, bipolar type. 3. Anxiety disorder, unspecified. PLAN: To continue with the treatment. The patient is awaiting for discharge most likely next week. LUIS E CHAO MD DR: SOLIS/olga JOB#: [id number] / [id number]
[2019-10-11 15:29] VITALS: BP 90/56
--- NOTE | 2019-10-11 21:22 | DS ---
DATE OF DISCHARGE: 10/11/2019 DISCHARGE DIAGNOSES: AXIS I: 1. Psychotic disorder, unspecified. 2. Schizoaffective disorder, bipolar type. 3. Anxiety disorder, unspecified. AXIS II: None. AXIS III: Asthma, chronic obstructive pulmonary disease, gastroesophageal reflux disease, hypertension, hypothyroidism, obstructive sleep apnea, and chronic insomnia. REASON FOR ADMISSION: This 73-year-old female was admitted from the Emergency Room at [facility] where she presented from home because of having visual hallucinations, mostly figures trying to kill her. The patient was also calling the police and telling them there are people in her apartment where no one was there. The patient apparently losing sleep, afraid to go to bed. The patient has been having active hallucinations. The patient also holding a conversation to imaginary figures. The patient was sent here because the patient's behavior was uncontrollable and also the patient could not be safe living in her apartment by herself. HISTORY OF PRESENT ILLNESS: The patient apparently had problems with short-term memory deficits and also the patient has a prior diagnosis of schizophrenia with the psychotic symptoms. The patient also apparently has had depression in the past, mood swings. The patient denied of any suicidal thoughts. The patient apparently used to live in [place] closer to her mother and she was recently moved by family to [place] just prior to admission here. HOSPITAL COURSE: The patient had a physical exam, routine lab work including CBC, chem profile, urinalysis. The patient did not exhibit any major abnormalities in the lab except for hemoglobin was 11.2. The patient's hemoglobin A1c was 5.2. The patient's BUN was 32, calcium was 8.1. The patient's glucose level was 124. Most of the lab work was within the normal range. The patient's urinalysis was normal. The patient was involved in the program including individual therapy, group therapy, activity therapy. The patient was continued on her medications including Zoloft that was decreased gradually to 25 mg daily. The patient was started on olanzapine 5 mg at night. The patient was also on trazodone 100 mg at bedtime p.r.n. The patient is also on Protonix 40 mg daily, Evista 60 mg daily, meloxicam 15 mg daily, levothyroxine 75 mcg daily, tramadol 50 mg b.i.d., olanzapine 2.5 mg q. 2 hours p.r.n. and also Tylenol 650 mg q. 6 hours p.r.n. The patient did fairly well with the medication. No side effects, but the patient had a tendency to withdraw to himself, able to hold a reasonable conversation, but still paranoid and suspicious. Staff observed to be staring into space sometimes. AFTERCARE PLAN: The patient at the time of discharge stable, still being paranoid, but no major behavior problems. The patient is compliant with the treatment. The patient is returning to her apartment at the son's decision and apparently he will be responsible for her. Also recommended the patient continue with the medications and continue outpatient treatment. LUIS E CHAO MD DR: SOLIS/nts JOB#: [id number] / [id number]
[2019-10-11] MEDS: SODIUM CHLORIDE 0.65% NASAL SPRAY 45ML BOTTLE. NS PRN (21:29)
[2019-10-11] MEDS: POLYVINYL ALCOHOL 1.4% OPHTH SOLUTION 15ML BOTTLE. OU PRN (21:29)
[2019-10-11] MEDS: traZODone 100 MG TABLET. PO PRN (21:29)
[2019-10-11] MEDS: MAGNESIUM HYDROXIDE 2,400 MG/30 ML ORAL.SUSP. PO PRN (21:29)
[2019-10-12] MEDS ORDERED: ACET325T9 PO (02:39)
[2019-10-12] MEDS ORDERED: MAGN24003 PO (02:41)
[2019-10-12] MEDS ORDERED: MAG-95 PO (02:41)
[2019-10-12] MEDS ORDERED: METH57CR17 TP (02:42)
[2019-10-12] MEDS ORDERED: NICO1PAT25 TD (02:42)
[2019-10-12] MEDS ORDERED: OLAN5TAB9 PO ×2 (02:43→02:44)
[2019-10-12] MEDS ORDERED: ONDA4TAB12 PO (02:45)
[2019-10-12] MEDS ORDERED: SERT25TA PO (02:47)
[2019-10-12] MEDS ORDERED: PANT40TA3 PO (02:47)
[2019-10-12] MEDS ORDERED: SODI44SP14 NS (02:48)
[2019-10-12] MEDS ORDERED: POLY15DR20 OP (02:51)
[2019-10-12 05:17] VITALS: BP 125/79
[2019-10-12] MEDS: LEVOTHYROXINE 75 MCG TABLET PO SCH ×2 (05:26→08:16)
[2019-10-12] MEDS: PANTOPRAZOLE 40 MG TABLET. PO SCH ×2 (05:26→08:16)
[2019-10-12] MEDS: SERTRALINE 25 MG TABLET. PO SCH (08:17)
[2019-10-12] MEDS: VILANTEROL TR INH SCH (08:17)
[2019-10-12] MEDS: MELOXICAM 15 MG TABLET. PO SCH (08:17)
[2019-10-12] MEDS: UMECLIDINIUM BRM INH SCH (08:17)
[2019-10-12] MEDS: traMADol 50 MG TABLET PO SCH (08:17)
[2019-10-12] MEDS: RALOXIFENE 60 MG TABLET. PO SCH (08:17)
[2019-10-12] MEDS: NICOTINE 14MG PATCH. TD SCH (08:17)
[2019-10-12] MEDS: POLYVINYL ALCOHOL 1.4% OPHTH SOLUTION 15ML BOTTLE. OU PRN (11:10)
[2019-10-12] MEDS: SODIUM CHLORIDE 0.65% NASAL SPRAY 45ML BOTTLE. NS PRN (11:11)
== END 2019-10-12 15:00 | DRG 885 ==
LOC: GEROPSY 16:48
PROVIDERS: ADMIT Psychiatry & Neurology Psychiatry; ATTEND Psychiatry & Neurology Psychiatry
DX: F25.0 Schizoaffective disorder, bipolar type (principal); F41.9 Anxiety disorder, unspecified; J44.9 Chronic obstructive pulmonary disease, unspecified; K21.9 Gastro-esophageal reflux disease without esophagitis; I10 Essential (primary) hypertension; G47.33 Obstructive sleep apnea (adult) (pediatric); F10.959 Alcohol use, unspecified with alcohol-induced psychotic disorder, unspecified; F02.80 Dementia in other diseases classified elsewhere, unspecified severity, without behavioral disturbance, psychotic disturbance, mood disturbance, and anxiety; E03.9 Hypothyroidism, unspecified; F17.200 Nicotine dependence, unspecified, uncomplicated; F51.04 Psychophysiologic insomnia; G30.9 Alzheimer's disease, unspecified; Z79.1 Long term (current) use of non-steroidal anti-inflammatories (NSAID); Z90.710 Acquired absence of both cervix and uterus; Z79.899 Other long term (current) drug therapy; Z98.41 Cataract extraction status, right eye; Z98.42 Cataract extraction status, left eye; Z88.0 Allergy status to penicillin; Z88.8 Allergy status to other drugs, medicaments and biological substances
CPT/HCPCS: 36415; 70450; 80053; 80061; 81001; 82306; 82607; 83036; 83540; 83550; 83735; 84436; 84443; 84480; 85025; 86592; 93005; 99406; Q0162